=== PATIENT | male | born 1985 | race Caucasian/White ===

== ENCOUNTER 2020-12-20 01:12 | Emergency (ER) | payer MEDICAID ==
[~2020-12-20] VITALS: Ht 182.9 cm; Wt 102.0 kg
[~2020-12-20 01:12] MED LIST: DOXY-11 PO; DOXY100C43 PO; HYDR-4353 PO; SULF1TAB49 PO
[2020-12-20 01:16] VITALS: BP 133/92
[2020-12-20] MEDS ORDERED: CEPH-585 PO (01:39)
[2020-12-20] MEDS ORDERED: SULF1TAB49 PO (01:39)
== END 2020-12-20 01:50 | disposition home or self-care (01) ==
LOC: ER 01:12
DX: L03.115 Cellulitis of right lower limb (principal); Z79.2 Long term (current) use of antibiotics; Z79.899 Other long term (current) drug therapy
CPT/HCPCS: 99283

== ENCOUNTER 2021-08-21 14:34 | Emergency (ER) | payer MEDICAID ==
[~2021-08-21] VITALS: Ht 185.4 cm; Wt 85.8 kg
[2021-08-21] MEDS ORDERED: LIDOcaine 1% W/epiNEPHrine 1:200,000 10ml vial IJ ONE (16:45)
[2021-08-21] MEDS ORDERED: TETanus/Pertussis (Acell)/Diphther VAC/PF (Tdap-Adult) 0.5ml syringe IMVAC ONE (16:45)
[2021-08-21] MEDS ORDERED: LIDOcaine 1% W/epiNEPHrine 1:100,000 20ml vial IJ ONE (16:55)
[2021-08-21 19:12] VITALS: BP 170/101
== END 2021-08-21 19:16 | disposition home or self-care (01) ==
LOC: ER 14:35 → EEVIPCON 14:35 → ER 19:16
DX: S01.81XA Laceration without foreign body of other part of head, initial encounter (principal); S90.212A Contusion of left great toe with damage to nail, initial encounter; R42 Dizziness and giddiness; F12.90 Cannabis use, unspecified, uncomplicated; Z79.2 Long term (current) use of antibiotics; Z79.899 Other long term (current) drug therapy; Y08.89XA Assault by other specified means, initial encounter; Y93.89 Activity, other specified; Y92.89 Other specified places as the place of occurrence of the external cause; Y99.8 Other external cause status
CPT/HCPCS: 11740; 12013; 99284

== ENCOUNTER 2021-08-29 17:09 | Emergency (ER) | payer MEDICAID ==
[~2021-08-29] VITALS: Ht 185.4 cm; Wt 102.6 kg
[2021-08-29 17:27] VITALS: BP 150/96
[2021-08-29] MEDS ORDERED: CEPH250T PO (18:17)
== END 2021-08-29 18:32 | disposition home or self-care (01) ==
LOC: ER 17:09
DX: S01.81XD Laceration without foreign body of other part of head, subsequent encounter (principal); F12.90 Cannabis use, unspecified, uncomplicated; Z48.02 Encounter for removal of sutures; Z79.2 Long term (current) use of antibiotics; Z79.899 Other long term (current) drug therapy; X58.XXXD Exposure to other specified factors, subsequent encounter
CPT/HCPCS: 99283

== ENCOUNTER 2022-02-16 13:39 | Emergency (ER) | payer MEDICAID ==
[~2022-02-16] VITALS: Ht 185.4 cm; Wt 97.7 kg
[2022-02-16 13:46] VITALS: BP 128/82
[2022-02-16] MEDS ORDERED: DOXYCYCLINE 100MG CAPSULE PO STA (17:06)
[2022-02-16] MEDS ORDERED: cephalexin 500mg capsule PO ONE (17:10)
[2022-02-16] MEDS ORDERED: predniSONE 20 mg tablet PO ONE (17:10)
[2022-02-16] MEDS ORDERED: DOXY100C76 PO (17:50)
[2022-02-16] MEDS ORDERED: CEPH500C2 PO (17:50)
== END 2022-02-16 18:08 | disposition home or self-care (01) ==
LOC: ER 13:39
DX: L03.116 Cellulitis of left lower limb (principal); M79.662 Pain in left lower leg; F12.90 Cannabis use, unspecified, uncomplicated; Z79.2 Long term (current) use of antibiotics; Z79.899 Other long term (current) drug therapy
CPT/HCPCS: 99284; J7512

== ENCOUNTER 2023-02-05 05:01 | Emergency (ER) | payer MEDICAID ==
[~2023-02-05] VITALS: Ht 185.4 cm; Wt 102.3 kg
[2023-02-05 05:07] VITALS: BP 145/97
[2023-02-05] MEDS ORDERED: LIDOcaine 5% patch TP STA (05:24)
[2023-02-05] MEDS ORDERED: ketorolac tromethamine 15mg/ml inj. IM ONE (05:25)
[2023-02-05] MEDS ORDERED: orphenadrine citrate 60mg/2ml inj. IM ONE (05:25)
[2023-02-05] MEDS ORDERED: acetaminophen 325mg tablet PO ONE (05:25)
[2023-02-05] MEDS ORDERED: ACET650T58 PO (06:00)
[2023-02-05] MEDS ORDERED: IBUP-1985 PO (06:00)
[2023-02-05] MEDS ORDERED: CYCL-1 PO (06:01)
[2023-02-05] MEDS ORDERED: ketorolac trometh inj. 60 MG/2 ML VIAL IM ONE (06:05)
== END 2023-02-05 06:38 | disposition home or self-care (01) ==
LOC: ER 05:02
DX: M54.59 Other low back pain (principal)
CPT/HCPCS: 72131; 96372; 99285; J1885; J2360; 99284

== ENCOUNTER 2023-02-24 08:17 | Emergency (ER) | payer MEDICAID ==
[~2023-02-24] VITALS: Ht 185.4 cm; Wt 102.3 kg
[~2023-02-24 08:17] MED LIST changes: +CYCL-1 PO; +IBUP-1985 PO
[2023-02-24 08:25] VITALS: BP 134/91
[2023-02-24] MEDS ORDERED: ibuprofen tablet 400 MG TABLET PO ONE (09:05)
[2023-02-24] MEDS ORDERED: acetaminophen 325mg tablet PO ONE (09:05)
[2023-02-24] MEDS ORDERED: ibuprofen 200mg tablet PO ONE (09:10)
== END 2023-02-24 09:45 | disposition home or self-care (01) ==
LOC: ER 08:17
DX: M25.532 Pain in left wrist (principal); F12.90 Cannabis use, unspecified, uncomplicated; Z79.899 Other long term (current) drug therapy
CPT/HCPCS: 73110; 99283

== ENCOUNTER 2023-02-26 08:11 | Emergency (ER) | payer MEDICAID ==
[~2023-02-26] VITALS: Ht 185.4 cm; Wt 102.3 kg
[2023-02-26 08:22] VITALS: BP 135/96
[2023-02-26] MEDS ORDERED: sulfamethoxazole/trimethoprim DS (800/160mg) tablet PO ONE (09:50)
[2023-02-26] MEDS ORDERED: ketorolac trometh inj. 60 MG/2 ML VIAL IM ONE (09:50)
[2023-02-26] MEDS ORDERED: SULF1TAB49 PO (09:51)
[2023-02-26] MEDS ORDERED: IBUP-1986 PO (09:51)
== END 2023-02-26 10:13 | disposition home or self-care (01) ==
LOC: ER 08:11
DX: L03.114 Cellulitis of left upper limb (principal); F12.90 Cannabis use, unspecified, uncomplicated
CPT/HCPCS: 96372; 99283; J1885

== ENCOUNTER 2023-04-01 22:29 | Emergency (ER) | payer MEDICAID ==
[~2023-04-01] VITALS: Ht 185.4 cm; Wt 96.6 kg
[~2023-04-01 22:29] MED LIST changes: +BUPR150T8 PO; -DOXY-11 PO; -DOXY100C43 PO; -IBUP-1985 PO; +NALT50TA PO; +ROC1P IV; -SULF1TAB49 PO; +VANC1VIA38 IV
[2023-04-02] MEDS ORDERED: vancomycin/NS 1 GM ADD-VANTAGE 250 ML IV ONE (01:40)
[2023-04-02] MEDS ORDERED: acetaminophen 325mg tablet PO ONE (02:10)
[2023-04-02] MEDS ORDERED: ibuprofen tablet 400 MG TABLET PO ONE (02:10)
[2023-04-02 05:20] VITALS: BP 126/88
--- NOTE | 2023-04-02 09:29 | NUR ---
PICC RN CAME TO ED AND STATED PICC LINES ARE NOT PLACED IN THE ED. RN NOTIFIED COUNTRY DIRECTOR WHO WILL CONT RN ECONOMIC DEVELOPMENT COORDINATOR. RN ECONOMIC DEVELOPMENT COORDINATOR WILL CONTACT PICC RN. WILLIAM FREGOSO ON BREAK. RN WILL NOTIFY HER ONCE SHE RETURNS.
== END 2023-04-02 13:19 | disposition home or self-care (01) ==
LOC: ER 22:30
DX: M25.532 Pain in left wrist (principal); A49.02 Methicillin resistant Staphylococcus aureus infection, unspecified site; F17.200 Nicotine dependence, unspecified, uncomplicated; F12.90 Cannabis use, unspecified, uncomplicated; F15.20 Other stimulant dependence, uncomplicated
CPT/HCPCS: 36569; 76942; 96365; 96366; 99285; C1751; J3370

== ENCOUNTER 2023-04-02 17:22 | Inpatient (IN) | payer MEDICAID ==
[~2023-04-02] VITALS: Ht 185.4 cm; Wt 109.1 kg
[2023-04-02] MEDS ORDERED: vancomycin/NS 1 GM ADD-VANTAGE 250 ML IV ONE (18:20)
[2023-04-02] MEDS ORDERED: normal saline 1000ML IV soln IV ONE (18:25)
[2023-04-02 19:10] LABS: BASOPHILS # (AUTO) 0.1 X10'3 (0-0.2); BASOPHILS % (AUTO) 0.9 % (0-1); EOSINOPHILS # (AUTO) 0.3 X10'3 (0-0.9); EOSINOPHILS % (AUTO) 3.8 % (0-6); HEMATOCRIT 42.6 % (42.0-52.0); HEMOGLOBIN 14.5 g/dl (14.0-17.9); LYMPHOCYTES # (AUTO) 1.5 X10'3 (1.1-4.8); LYMPHOCYTES % (AUTO) 20.2 % (21-51); MEAN CORPUSCULAR HEMOGLOBIN 28.9 PG (27.0-31.0); MEAN CORPUSCULAR HGB CONC 34.1 g/dL (33.0-36.5); MEAN CORPUSCULAR VOLUME 84.9 FL (78-98); MEAN PLATELET VOLUME 6.8 FL (7.4-10.4); MONOCYTES # (AUTO) 0.8 X10'3 (0-0.9); MONOCYTES % (AUTO) 10.6 % (2-12); NEUTROPHILS # (AUTO) 4.7 X10'3 (1.8-7.7); NEUTROPHILS % (AUTO) 64.5 % (42-75); PLATELET COUNT 412 X10'3 (140-440); RED BLOOD COUNT 5.02 X10'6 (4.70-6.10); RED CELL DISTRIBUTION WIDTH 13.7 % (11.5-14.5); WHITE BLOOD COUNT 7.4 X10'3 (4.5-11.0)
--- NOTE | 2023-04-02 19:12 | NUR ---
HERE FOR INFUSION THERAPY.
--- NOTE | 2023-04-02 19:14 | NUR ---
ALL CHARTING DONE UNDER AV THOMAS RN. ALL CHARTING INADVERTENTLY DONE UNDER HER SIGN IN. CHARTING DONE BY JEFF TIRADO RN ALL MEDICATIONS BY JEFF TIRADO RN.
[2023-04-02 19:32] LABS: ALANINE AMINOTRANSFERASE 209 U/L (12-78); ALBUMIN 4.2 G/DL (3.4-5.0); ALBUMIN/GLOBULIN RATIO 1.1 (1.1-1.5); ALKALINE PHOSPHATASE 74 IU/L (46-116); ANION GAP 12 (8-16); ASPARTATE AMINO TRANSFERASE 71 U/L (10-37); BILIRUBIN,TOTAL 0.3 MG/DL (0.1-1.0); BLOOD UREA NITROGEN 23 MG/DL (7-18); BUN/CREATININE RATIO 22.3 (10.0-20.0); CALCIUM 8.9 MG/DL (8.5-10.1); CHLORIDE 102 MMOL/L (99-107); CREATININE 1.03 MG/DL (0.60-1.10); GLUCOSE 110 MG/DL (70-104); MAGNESIUM 1.9 MG/DL (1.5-2.4); POTASSIUM 4.1 MMOL/L (3.5-5.1); SODIUM 139 MMOL/L (135-145); eGFR 81 ML/MIN
--- NOTE | 2023-04-02 19:46 | NUR ---
HUNG 2ND LITER OF NS AND GAVE HIM FOOD AND DRINK. HE IS UP TO THE BR TO VOID.
--- NOTE | 2023-04-02 21:08 | NUR ---
pt made aware that Dr Viramontes placed him onto the hospitalist group and that he will be admitted. He is fine with this. Took him to room 10
[2023-04-02] MEDS ORDERED: potassium Cl 20 mEq SR tablet PO PRN ×2 (23:30)
[2023-04-02] MEDS ORDERED: mag hydrox/Alum hydrox/simeth 30ml oral suspension PO PRN (23:30)
[2023-04-02] MEDS ORDERED: magnesium 2GM in 50ml NS 50 ML IV PRN (23:30)
[2023-04-02] MEDS ORDERED: potassium Cl 40MEQ/1/2NS 520ml 520 ML IV PRN (23:30)
[2023-04-02] MEDS ORDERED: magnesium 4gm in 100ml NS 100 ML IV PRN (23:30)
[2023-04-02] MEDS ORDERED: magnesium hydroxide 30ml (MOM) UD suspension PO PRN (23:30)
[2023-04-02] MEDS ORDERED: magnesium Cl slow-release 64mg tablet PO PRN (23:30)
[2023-04-02] MEDS ORDERED: acetaminophen 325mg tablet PO PRN (23:30)
[2023-04-02] MEDS ORDERED: ondansetron/PF 4mg/2ml inj IV PRN (23:30)
[2023-04-03] VITALS (7 sets, daily range): BP systolic 107–155; BP diastolic 64–88
--- NOTE | 2023-04-03 | NUR ---
PATIENT ADMITTED TO ROOM 3009 FROM ER FOR LEFT WRIST OSTEOMYELITIS/MRSA. PLACED COMFORTABLE IN BED. VITAL SIGNS TAKEN AND RECORDED.
[2023-04-03] MEDS: HYDROcodone/acetaminophen 5mg/325mg tablet PO PRN ×3 (02:21→14:52)
[2023-04-03] MEDS ORDERED: vancomycin/NS 1 GM ADD-VANTAGE 250 ML IV SCH (04:00)
[2023-04-03] MEDS: vancomycin/NS 1 GM ADD-VANTAGE 250 ML IV SCH ×3 (05:09→20:06)
[2023-04-03 06:12] LABS: POTASSIUM 4.1 MMOL/L (3.5-5.1)
--- NOTE | 2023-04-03 06:17 | NUR ---
Problems reprioritized. Patient report given, questions answered & plan of care reviewed with RADHA FREGOSO.
--- NOTE | 2023-04-03 06:30 | NUR ---
Patient in room PCU 3009. I have received report from Dee FREGOSO and had the opportunity to ask questions and assume patient care.
[2023-04-03] MEDS: K and/or MAG REPLACEMENT MC SCH ×2 (08:00→20:00)
[2023-04-03] MEDS: buPROPion SR 150mg tablet PO SCH (08:00)
[2023-04-03] MEDS: docusate sod 100mg capsule PO SCH ×2 (08:36→20:06)
--- NOTE | 2023-04-03 13:55 | NUR ---
Sent to Dr Royal - [phone] C/O ineffective pain management. Please advise. Shanta VELASQUEZ [phone]
[2023-04-03] MEDS ORDERED: oxyCODONE/APAP 10/325mg tablet PO PRN (16:45)
[2023-04-03] MEDS ORDERED: VANCOMYCIN LEVEL IV ONE (19:30)
[2023-04-03] MEDS: oxyCODONE/APAP 10/325mg tablet PO PRN (22:19)
[2023-04-04 02:00] VITALS: BP 140/60
[2023-04-04] MEDS: oxyCODONE/APAP 10/325mg tablet PO PRN ×5 (02:21→18:57)
[2023-04-04] MEDS: vancomycin/NS 1 GM ADD-VANTAGE 250 ML IV SCH (03:33)
[2023-04-04 06:30] VITALS: BP 144/64
[2023-04-04 06:41] LABS: ALBUMIN 3.6 G/DL (3.4-5.0); ANION GAP 7 (8-16); BLOOD UREA NITROGEN 24 MG/DL (7-18); BUN/CREATININE RATIO 25.8 (10.0-20.0); CALCIUM 8.7 MG/DL (8.5-10.1); CHLORIDE 104 MMOL/L (99-107); CREATININE 0.93 MG/DL (0.60-1.10); GLUCOSE 102 MG/DL (70-104); POTASSIUM 3.9 MMOL/L (3.5-5.1); SODIUM 139 MMOL/L (135-145); TOTAL CARBON DIOXIDE 28.1 MMOL/L (24-32); eGFR > 90 ML/MIN
[2023-04-04 07:27] LABS: ALANINE AMINOTRANSFERASE 154 U/L (12-78); ALBUMIN/GLOBULIN RATIO 1.1 (1.1-1.5); ALKALINE PHOSPHATASE 59 IU/L (46-116); ASPARTATE AMINO TRANSFERASE 40 U/L (10-37); BILIRUBIN,DIRECT 0.1 MG/DL (0-0.3); BILIRUBIN,TOTAL 0.3 MG/DL (0.1-1.0); TOTAL PROTEIN 6.9 G/DL (6.4-8.2)
[2023-04-04] MEDS: K and/or MAG REPLACEMENT MC SCH ×2 (08:00→20:00)
[2023-04-04] MEDS: buPROPion SR 150mg tablet PO SCH ×2 (08:00→09:52)
[2023-04-04] MEDS: docusate sod 100mg capsule PO SCH ×2 (09:52→20:29)
[2023-04-04] MEDS: VANCOmycin 1250MG/NS 250ml Bag 250 ML IV SCH ×2 (12:31→20:29)
[2023-04-04 15:00] VITALS: BP 141/72
[2023-04-04 18:00] VITALS: BP 131/78
--- NOTE | 2023-04-04 18:00 | NUR ---
Patient in room PCU 3009. I have received report from Liliane FREGOSO and had the opportunity to ask questions and assume patient care.
[2023-04-04 22:00] VITALS: BP 129/73
[2023-04-05] MEDS: oxyCODONE/APAP 10/325mg tablet PO PRN ×3 (00:15→09:33)
[2023-04-05 02:00] VITALS: BP 130/75
[2023-04-05] MEDS: VANCOmycin 1250MG/NS 250ml Bag 250 ML IV SCH (03:53)
[2023-04-05 06:00] VITALS: BP 126/75
--- NOTE | 2023-04-05 06:35 | NUR ---
Problems reprioritized. Patient report given, questions answered & plan of care reviewed with Liliane RN.
[2023-04-05] MEDS: buPROPion SR 150mg tablet PO SCH (07:10)
[2023-04-05] MEDS: docusate sod 100mg capsule PO SCH (07:21)
[2023-04-05] MEDS: K and/or MAG REPLACEMENT MC SCH (08:00)
[2023-04-05 11:00] VITALS: BP 138/86
[2023-04-05] MEDS ORDERED: DAPTOMYCIN IV ONE (11:20)
[2023-04-05] MEDS ORDERED: NORMAL SALINE IV ONE (11:20)
[2023-04-05] MEDS ORDERED: VANCOMYCIN LEVEL IV ONE (11:30)
--- NOTE | 2023-04-05 13:17 | NUR ---
PAGER ID: [phone] MESSAGE: [id number] this pt is ready to discharge and the discharge medication needs to reflect the new Daptomyacin ABX that pt will be getting infused daily at [facility]. The Vanco has been d/c'd per Dr Chin. Thank you, Aletha [phone]
[2023-04-05 14:00] VITALS: BP 113/76
--- NOTE | 2023-04-05 17:22 | NUR ---
Pt dc'd home. all dc instructions explained to patient with patient verbalizing understanding regarding plan of care. pt will be getting daily daptomycin infusions via picc line at [facility] in the endoscopy dept, per dr bose. the insurance company authorized daily daptomycin in place of vancomycin that was q8 hours. pt left on foot as his car in in the hospital parking lot. vss a/ox4 and he will follow up with dr bee on an outpatient basis
== END 2023-04-05 17:05 | disposition home or self-care (01) | DRG 344 ==
LOC: ER 17:22 → ED HOLD 23:31 → PCU 3S 23:57
PROVIDERS: ADMIT Internal Medicine; ATTEND Internal Medicine
DX: M00.042 Staphylococcal arthritis, left hand (principal); M86.8X4 Other osteomyelitis, hand; B95.62 Methicillin resistant Staphylococcus aureus infection as the cause of diseases classified elsewhere; M65.842 Other synovitis and tenosynovitis, left hand; R03.0 Elevated blood-pressure reading, without diagnosis of hypertension; B95.7 Other staphylococcus as the cause of diseases classified elsewhere; Z53.29 Procedure and treatment not carried out because of patient's decision for other reasons; Z80.8 Family history of malignant neoplasm of other organs or systems; Z85.820 Personal history of malignant melanoma of skin
CPT/HCPCS: 36415; 71045; 73100; 80048; 80053; 80076; 80202; 83605; 83735; 84132; 84145; 85025; 87040; 87081; 99285; A6212; G0378; J0878; J3370; J3490; J7030; J7040

== ENCOUNTER 2024-11-13 17:39 | Emergency (ER) | payer MEDICAID ==
[~2024-11-13] VITALS: Ht 185.4 cm; Wt 98.7 kg
[~2024-11-13 17:39] MED LIST changes: -BUPR150T8 PO; -CYCL-1 PO; -NALT50TA PO; -ROC1P IV; -VANC1VIA38 IV
[2024-11-13] MEDS: ketorolac trometh 15mg/ml vial 15 MG/ML ML IM ONE (20:59)
[2024-11-13] MEDS: LIDOcaine 5% patch TP ONE (21:16)
[2024-11-13] MEDS ORDERED: LIDO700A32 TOP (21:38)
[2024-11-13 21:40] VITALS: BP 134/80; PULSE 88; RESP 16; TEMP 98.4; O2SAT 98
== END 2024-11-13 21:41 | disposition home or self-care (01) ==
LOC: ER 17:40
DX: M54.50 Low back pain, unspecified (principal); G89.29 Other chronic pain; F12.90 Cannabis use, unspecified, uncomplicated; F15.90 Other stimulant use, unspecified, uncomplicated
CPT/HCPCS: 72074; 72100; 96372; 99284; J1885

== ENCOUNTER 2025-01-10 04:01 | Emergency (ER) | payer MEDICAID ==
[~2025-01-10] VITALS: Ht 185.4 cm; Wt 95.7 kg
[~2025-01-10 04:01] MED LIST changes: +LIDO700A32 TOP
[2025-01-10] MEDS ORDERED: SULF1TAB48 PO (04:25)
[2025-01-10] MEDS: sulfamethoxazole/trimethoprim DS (800/160mg) tablet PO ONE (04:31)
[2025-01-10] MEDS: acetaminophen 325mg tablet PO ONE (04:32)
[2025-01-10 04:45] VITALS: BP 124/47; PULSE 87; RESP 16; TEMP 98.1; O2SAT 100
== END 2025-01-10 04:47 | disposition home or self-care (01) ==
LOC: ER 04:02
DX: S50.361A Insect bite (nonvenomous) of right elbow, initial encounter (principal); F12.90 Cannabis use, unspecified, uncomplicated; W57.XXXA Bitten or stung by nonvenomous insect and other nonvenomous arthropods, initial encounter; Y93.89 Activity, other specified; Y92.89 Other specified places as the place of occurrence of the external cause; Y99.8 Other external cause status
CPT/HCPCS: 99283

== ENCOUNTER 2025-03-17 00:01 | Emergency (ER) | payer MEDICAID ==
[~2025-03-17] VITALS: Ht 185.4 cm; Wt 84.7 kg
--- NOTE | 2025-03-17 01:53 | Physician Documentation ---
History of Present Illness ~ Chief Complaint: Bite-insect Stated Complaint: SPIDER BITE Time Seen by MD: 00:40 Primary Medical Doctor: None Mode of Arrival: Ambulatory HPI 39 year old male with swelling, redness, pain overlying dorsum R foot and R lateral malleolus. Believes it to be spider bite. Denies fever, N/V/d. Tetanus within 5 years?: No Medication Reconciliation Allergies: Coded Allergies: No Known Allergies (Unverified , 03/17/25) Scheduled Hydrocodone Bit/Acetaminophen ([place] 10-325 Tablet), 1 TAB PO TID PRN Lidocaine (Lidoderm), 1 PATCH TOP DAILY Past Medical History Past Medical History: *MUSCULOSKELETAL*, Cellulitis Past Surgical History: no surgical history Patient History: Aortic aneurysm FATHER Malignant melanoma of skin Brother Smoking Status: Unknown if ever smoked Alcohol Use: None Drug Use: marijuana, methamphetamine Lives with: Family Lives In: Home Occupation: student Review of Systems All Other Systems at this time: Reviewed and Negative Physical Exam Vital Signs: Temperature: 97.5, Source: Temporal, Heart Rate: 100, Respiratory Rate: 16, BP: 125/65, Pulse Oximetry: 100, Weight: 84.650 Physical Exam HEENT: PERRL, moist oral mucosa, EOMI Pulmonary: No respiratory distress MSK: no deformity Skin: w/d/i, no rash; erythema, swelling, tenderness, warmth, induration overlying dorsum R foot and R lateral malleolus Neuro: alert, nonfocal Psych: normal affect Progress Results/Orders Results/Orders Vital Signs 03/17/25 03/17/25 00:17 00:41 Temp 97.5 Pulse 100 Resp 15 16 B/P (MAP) 125/65 Pulse Ox 100 Medical Decision Making Findings 39 year old male with apparent cellulitis of Differential Dx:Considerations: Include: Abrasion, Allergic reaction, C ellulitis, Fracture, Urticaria Departure Disposition: 01 HOME / SELF CARE / HOMELESS Impression: Primary Impression: Cellulitis of right leg Condition: Stable Discharge Instructions: Cellulitis, Adult Referrals: NO PRIMARY CARE PROVIDER (PCP) Prescriptions Cephalexin*Monohydrate* (Keflex*) 500 Mg Capsule 1 CAP PO QID, #28 CAP Prov: MARIYA BONILLA MD 03/17/25 Sulfamethoxazole/Trimethoprim (Bactrim Ds Tablet) 800 Mg-160 Mg Tablet 1 TAB PO Q12H for 7 Days, #14 TAB Prov: MARIYA BONILLA MD 03/17/25 Education Educated: Patient, Family Educated regarding: diagnosis, treatment, prognosis, need for follow up Signature Scribe Signature: . Attestation: . MARIYA BONILLA MD Mar 17, 2025 01:53
[2025-03-17] MEDS ORDERED: CEPH-585 PO (01:55)
[2025-03-17] MEDS ORDERED: SULF1TAB49 PO (01:55)
[2025-03-17] MEDS: cephalexin 250mg capsule PO ONE (02:01)
[2025-03-17] MEDS: sulfamethoxazole/trimethoprim DS (800/160mg) tablet PO ONE (02:01)
[2025-03-17 02:31] VITALS: BP 122/64; PULSE 98; RESP 16; TEMP 98.4; O2SAT 97
== END 2025-03-17 02:10 | disposition home or self-care (01) ==
LOC: ER 00:03 → PCU 3S 01:27 → UNDOADMIN 01:27 → ER 02:10
DX: L03.115 Cellulitis of right lower limb (principal); F12.90 Cannabis use, unspecified, uncomplicated; F15.90 Other stimulant use, unspecified, uncomplicated; Z79.899 Other long term (current) drug therapy
CPT/HCPCS: 99283

== ENCOUNTER 2025-03-20 23:15 | Emergency (ER) | payer MEDICAID ==
[~2025-03-20] VITALS: Ht 185.4 cm; Wt 101.1 kg
[~2025-03-20 23:15] MED LIST changes: +CEPH-585 PO; +LIDO-52 TOP; -LIDO700A32 TOP; +SULF1TAB49 PO
--- NOTE | 2025-03-21 00:25 | Physician Documentation ---
History of Present Illness ~ Chief Complaint: Allergic Reaction Stated Complaint: REACTION TO MEDICATION Time Seen by MD: 00:15 Primary Medical Doctor: None HPI Patient is seen today with complaints of having an itchy anus and having some low back discomfort and also feeling as though his tongue is swelling. Patient states he has been taking Keflex 4 times a day and Bactrim twice a day for about five days now for an infection of his right foot. Patient denies previously having any allergies to any antibiotics. Patient has no other concern or complaint in his time. Medication Reconciliation Allergies: Coded Allergies: cephalexin (Verified Allergy, Unknown, SORES IN DIFFERENT SPOTS ON BODY, 03/20/25) Scheduled Cephalexin*Monohydrate* (Keflex*), 1 CAP PO QID Hydrocodone Bit/Acetaminophen ([place] 10-325 Tablet), 1 TAB PO TID PRN Lidocaine (Lidoderm), 1 PATCH TOP DAILY Methylprednisolone (Medrol Dosepak), 0 PO UD Sulfamethoxazole/Trimethoprim (Bactrim Ds Tablet), 1 TAB PO Q12H Past Medical History Past Medical History: *MUSCULOSKELETAL*, Cellulitis Past Surgical History: no surgical history Patient History: Aortic aneurysm FATHER Malignant melanoma of skin Brother Alcohol Use: None Drug Use: marijuana, methamphetamine Lives with: Family Lives In: Home Occupation: student Review of Systems Constitutional: Denies: chills, fever, weakness Eyes: Denies: pain, blurred vision ENT: Denies: ear pain, nose pain, throat pain, mouth pain Respiratory: Denies: cough, shortness of breath Cardiovascular: Denies: chest pain, palpitations Gastrointestinal: Denies: abdominal pain, nausea, vomiting Genitourinary: Denies: burning, dysuria Male Genitalia: Denies: penile discharge, testicular pain Neurological: Denies: headache, dizziness Musculoskeletal: Denies: pain, swelling Integumentary: Denies: rash, lesions Allergic/Immunologic: Denies: hives, itching Hematologic/Lymphatic: Denies: no symptoms reported Psychiatric: Denies: depression, anxiety Physical Exam Vital Signs: Temperature: 97.1, Source: Temporal, Heart Rate: 94, Respiratory Rate: 16, BP: 127/82, Pulse Oximetry: 99, Weight: 101.100 Oxygen Flow Rate: 0 Physical Exam General: Awake and Alert, no acute distress. HEENT: On examination, I did not appreciate any visible swelling of the patient's throat for tongue and I did not appreciate any stridor. Conjunctiva pink, Sclera clear, Mucus Membranes moist. Neck: Supple without masses and tenderness. Resp: Unlabored. Lungs clear to auscultation bilaterally. I do not appreciate any stridor or difficulty breathing or respiratory distress. Heart: Regular Rate and rhythm, normal S1 and S2 without murmur, rub or gallop. Abdomen: Soft and non tender no organomegaly Extremities: No cyanosis,clubbing or edema. Skin: Warm and Dry. Patient does not have any visible hives or skin rash. Progress Results/Orders Results/Orders Orders - TERESA KRAMER PAC Hand, Complete (3vw Min) (03/21/25 00:53) Completed Orders - TERESA KRAMER PAC Dexamethasone Inj (Decadron 10mg/Ml Inj) (03/21/25 00:24) Medications Received in ER Medications (Trade) Dose Ordered Sig/Henna Route PRN Reason Start Time Stop Time Status Last Admin Dose Admin (Decadron 10mg/ ml inj) 10 mg ONCE STAT IM 03/21/25 00:24 03/21/25 00:31 DC 03/21/25 00:36 10 MG Vital Signs 03/20/25 23:19 Temp 97.1 Pulse 94 Resp 16 B/P (MAP) 127/82 Pulse Ox 99 O2 Flow Rate 0 Medical Decision Making Findings Patient is seen today with complaints of having an itchy anus and having some low back discomfort and also feeling as though his tongue is swelling. Patient states he has been taking Keflex 4 times a day and Bactrim twice a day for about five days now for an infection of his right foot. Patient denies previously having any allergies to any antibiotics. Patient has no other concern or complaint in his time. Patient will discontinue the Keflex of his time and will follow up with primary care provider or return to the ED and 1-2 days for re-evaluation. Patient will continue the Bactrim DS twice a day by mouth. Patient was given dose of Decadron 10 mg IM in the ED tonight. Prescriptions menstrual Dosepak sent to patient's pharmacy to be taken as directed. Return to eating with any worsening, concerning or changing symptoms. Shared decision-making utilized today. Departure Disposition: HOME / SELF CARE / HOMELESS Impression: Primary Impression: Cellulitis of right leg Additional Impression: Antibiotic drug intolerance Condition: Improved Discharge Instructions: Anal Pruritus, [id number] Additional Instructions: Patient will discontinue the Keflex of his time and will follow up with primary care provider or return to the ED and 1-2 days for re-evaluation. Patient will continue the Bactrim DS twice a day by mouth. Patient was given dose of Decadron 10 mg IM in the ED tonight. Prescriptions menstrual Dosepak sent to [facility] to be taken as directed. Return to eating with any worsening, concerning or changing symptoms. Shared decision-making utilized today. Referrals: NO PRIMARY CARE PROVIDER (PCP) Prescriptions Methylprednisolone (Medrol Dosepak) 4 Mg Tab.ds.pk 0 PO UD, #21 TAB 0 Refills take 6 Pills Day 1, 5 Pills Day 2, 4 Pills Day 3, 3 Pills Day 4, 2 Pills Day 5 and 1 pill Day 6 Prov: TERESA KRAMER 03/21/25 Signature Scribe Signature: No scribe Attestation: No scribe TERESA KRAMER Mar 21, 2025 00:25
[2025-03-21] MEDS: dexamethasone sod phosphate 10mg/ml inj IM STA (00:36)
[2025-03-21] MEDS ORDERED: METH4TAB81 PO (00:51)
[2025-03-21 01:03] VITALS: BP 123/80; PULSE 90; RESP 18; TEMP 98.6; O2SAT 99
== END 2025-03-21 01:14 | disposition home or self-care (01) ==
LOC: ER 23:16
DX: L03.115 Cellulitis of right lower limb (principal); F12.90 Cannabis use, unspecified, uncomplicated; T36.95XA Adverse effect of unspecified systemic antibiotic, initial encounter; F15.90 Other stimulant use, unspecified, uncomplicated; Z88.1 Allergy status to other antibiotic agents; Y92.89 Other specified places as the place of occurrence of the external cause
CPT/HCPCS: 96372; 99283; J1100